=== PATIENT | male | born 1980 | race African-American/Black ===

== ENCOUNTER 2020-01-16 | Emergency (ER) | payer MEDICAID ==
[~2020-01-16] VITALS: Ht 185.4 cm; Wt 58.8 kg
[2020-01-16 00:09] VITALS: BP 118/76
[2020-01-16] MEDS ORDERED: LIDOcaine 1% 30ml preserv. free vial IJ ONE (00:40)
== END 2020-01-16 01:15 | disposition home or self-care (01) ==
LOC: ER 00:02
DX: L03.012 Cellulitis of left finger (principal); Z59.0 Homelessness
CPT/HCPCS: 10060; 99282; J2001

== ENCOUNTER 2020-01-24 11:59 | Emergency (ER) | payer MEDICAID ==
[~2020-01-24] VITALS: Ht 185.4 cm; Wt 66.0 kg
[2020-01-24 12:24] VITALS: BP 117/60
[2020-01-24] MEDS ORDERED: CEPH500C5 PO (13:57)
[2020-01-24] MEDS ORDERED: SULF1TAB49 PO (13:57)
== END 2020-01-24 14:21 | disposition home or self-care (01) ==
LOC: ER 11:59
DX: L02.211 Cutaneous abscess of abdominal wall (principal); Z59.0 Homelessness; Z79.899 Other long term (current) drug therapy
CPT/HCPCS: 99283

== ENCOUNTER 2020-02-19 22:23 | Emergency (ER) | payer MEDICAID ==
[~2020-02-19] VITALS: Ht 185.4 cm; Wt 64.8 kg
[2020-02-19 22:39] VITALS: BP 114/71
[2020-02-19] MEDS ORDERED: AMOX-422 PO (23:08)
[2020-02-19] MEDS ORDERED: acetaminophen 325mg tablet PO ONE (23:10)
== END 2020-02-19 23:34 | disposition home or self-care (01) ==
LOC: ER 22:24
DX: H66.91 Otitis media, unspecified, right ear (principal); Z59.0 Homelessness; Z79.899 Other long term (current) drug therapy
CPT/HCPCS: 99283

== ENCOUNTER 2020-02-22 00:10 | Emergency (ER) | payer MEDICAID ==
[~2020-02-22] VITALS: Ht 185.4 cm; Wt 65.9 kg
[~2020-02-22 00:10] MED LIST: AMOX-422 PO
[2020-02-22 00:23] VITALS: BP 118/85
[2020-02-22] MEDS ORDERED: NEOM10DR45 RIGHT EAR (01:25)
== END 2020-02-22 01:36 | disposition home or self-care (01) ==
LOC: ER 00:11
DX: H60.91 Unspecified otitis externa, right ear (principal); Z59.0 Homelessness; Z79.899 Other long term (current) drug therapy
CPT/HCPCS: 99283

== ENCOUNTER 2020-09-12 21:21 | Emergency (ER) | payer MEDICAID ==
[~2020-09-12] VITALS: Ht 185.4 cm; Wt 58.8 kg
[2020-09-12] MEDS ORDERED: ondansetron 4mg rapidly disintigrating tab PO ONE (22:15)
[2020-09-12] MEDS ORDERED: mag hydrox/Alum hydrox/simeth 30ml oral suspension PO ONE (22:15)
[2020-09-12] MEDS ORDERED: ONDA4TAB6 PO (22:28)
[2020-09-12 22:35] VITALS: BP 116/85
== END 2020-09-12 22:34 | disposition home or self-care (01) ==
LOC: ER 21:22
DX: R11.0 Nausea (principal); Z59.0 Homelessness; Z79.899 Other long term (current) drug therapy
CPT/HCPCS: 99283

== ENCOUNTER 2020-09-21 11:08 | Emergency (ER) | payer MEDICAID ==
[~2020-09-21] VITALS: Ht 185.4 cm; Wt 68.2 kg
[~2020-09-21 11:08] MED LIST changes: -AMOX-422 PO; +ONDA4TAB6 PO
[2020-09-21] MEDS ORDERED: potassium Cl 20 mEq SR tablet PO STA (11:32)
[2020-09-21] MEDS ORDERED: magnesium oxide 400mg tablet PO ONE (11:35)
[2020-09-21 12:21] VITALS: BP 112/69
[2020-09-21] MEDS: acetaminophen 325mg tablet PO ONE ×2 (12:37→12:38)
== END 2020-09-21 12:39 | disposition home or self-care (01) ==
LOC: ER 11:08
DX: S90.822A Blister (nonthermal), left foot, initial encounter (principal); R53.83 Other fatigue; E86.0 Dehydration; Z59.0 Homelessness; X58.XXXA Exposure to other specified factors, initial encounter; Y93.89 Activity, other specified; Y92.89 Other specified places as the place of occurrence of the external cause; Y99.8 Other external cause status; Z79.899 Other long term (current) drug therapy
CPT/HCPCS: 99284

== ENCOUNTER 2021-04-13 05:07 | Emergency (ER) | payer MEDICAID ==
[~2021-04-13] VITALS: Ht 185.4 cm; Wt 65.9 kg
[2021-04-13] MEDS ORDERED: diphenhydrAMINE 25mg capsule PO ONE (05:35)
[2021-04-13] MEDS ORDERED: metoclopramide 5 mg/ml inj IM ONE (05:35)
[2021-04-13] MEDS ORDERED: ketorolac trometh inj. 60 MG/2 ML VIAL IM ONE (05:35)
[2021-04-13 05:37] VITALS: BP 125/84
== END 2021-04-13 06:27 | disposition home or self-care (01) ==
LOC: ER 05:08
DX: R51.9 Headache, unspecified (principal); Z59.00 Homelessness unspecified
CPT/HCPCS: 70450; 96372; 99284; J1885; J2765; Q0163

== ENCOUNTER 2021-04-27 07:42 | Emergency (ER) | payer MEDICAID ==
[~2021-04-27] VITALS: Ht 185.4 cm; Wt 68.2 kg
[2021-04-27 07:46] VITALS: BP 125/92
[2021-04-27 08:25] LABS: CLARITY,URINE SLIGHTLY CLOUDY (Clear); COLOR,URINE YELLOW (Yellow); GLUCOSE, URINE NEGATIVE (Neg); KETONES,URINE TRACE mg/dl (Neg); LEUKOCYTE ESTERASE ,URINE NEGATIVE (Neg); NITRITES, URINE NEGATIVE (Neg); OCCULT BLOOD,URINE MODERATE (Neg); PH,URINE 5.5 (4.8-8.0); PROTEIN,URINE TRACE mg/dl (Neg); UROBILINOGEN,URINE 0.2 E.U/dL (0.2-1.0)
[2021-04-27 08:26] LABS: UA COLLECTION TYPE CLN CATCH MIDSTREAM
[2021-04-27 08:40] LABS: MUCUS STRANDS MANY /LPF (Neg); SQUAMOUS EPITHELIAL CELL,UR FEW /LPF (FEW)
[2021-04-27 08:42] LABS: BACTERIA,URINE FEW /HPF (Neg); WBC,URINE 0-4 /HPF (0-4)
== END 2021-04-27 08:44 | disposition home or self-care (01) ==
LOC: ER 07:43
DX: R10.9 Unspecified abdominal pain (principal); R11.0 Nausea; Z59.00 Homelessness unspecified
CPT/HCPCS: 81001; 99283

== ENCOUNTER 2021-06-13 18:41 | Emergency (ER) | payer MEDICAID ==
[~2021-06-13] VITALS: Ht 185.4 cm; Wt 55.6 kg
[2021-06-13 19:10] VITALS: BP 138/70
== END 2021-06-13 19:13 | disposition home or self-care (01) ==
LOC: ER 18:42
DX: Z13.89 Encounter for screening for other disorder (principal); R10.84 Generalized abdominal pain; Z59.00 Homelessness unspecified; Z79.899 Other long term (current) drug therapy
CPT/HCPCS: 99282; 99284

== ENCOUNTER 2021-07-12 03:40 | Emergency (ER) | payer MEDICAID ==
[~2021-07-12] VITALS: Ht 185.4 cm; Wt 71.0 kg
[2021-07-12 04:15] VITALS: BP 129/63
[2021-07-12] MEDS ORDERED: OLANZapine 2.5MG tablet PO STA (05:07)
== END 2021-07-12 06:11 | disposition home or self-care (01) ==
LOC: ER 03:43
DX: F60.0 Paranoid personality disorder (principal); R41.0 Disorientation, unspecified
CPT/HCPCS: 99283

== ENCOUNTER 2021-08-27 08:43 | Emergency (ER) | payer MEDICAID ==
[~2021-08-27] VITALS: Ht 185.4 cm; Wt 65.9 kg
[~2021-08-27 08:43] MED LIST changes: -ONDA4TAB6 PO; +PHEN51CR24 RC
[2021-08-27 09:03] VITALS: BP 112/80
[2021-08-27 09:39] LABS: CLARITY,URINE CLEAR (Clear); COLOR,URINE YELLOW (Yellow); GLUCOSE, URINE NEGATIVE (Neg); KETONES,URINE NEGATIVE (Neg); LEUKOCYTE ESTERASE ,URINE NEGATIVE (Neg); NITRITES, URINE NEGATIVE (Neg); OCCULT BLOOD,URINE NEGATIVE (Neg); PROTEIN,URINE NEGATIVE (Neg); UROBILINOGEN,URINE 0.2 E.U/dL (0.2-1.0)
[2021-08-27 09:42] LABS: UA COLLECTION TYPE CLN CATCH MIDSTREAM
[2021-08-27] MEDS ORDERED: FLO0.4C PO (10:16)
[2021-08-27] MEDS ORDERED: PHEN-716 PO (10:16)
== END 2021-08-27 10:32 | disposition home or self-care (01) ==
LOC: ER 08:43
DX: R39.15 Urgency of urination (principal); Z59.00 Homelessness unspecified; Z79.899 Other long term (current) drug therapy
CPT/HCPCS: 81003; 99283

== ENCOUNTER 2021-09-20 14:30 | Emergency (ER) | payer MEDICAID ==
[~2021-09-20] VITALS: Ht 185.4 cm; Wt 68.2 kg
[~2021-09-20 14:30] MED LIST changes: +FLO0.4C PO; +PHEN-716 PO
[2021-09-20 14:37] VITALS: BP 109/74
[2021-09-20] MEDS ORDERED: CLOT24CR2 TOP (15:46)
== END 2021-09-20 15:55 | disposition home or self-care (01) ==
LOC: ER 14:31
DX: B35.3 Tinea pedis (principal); Z59.00 Homelessness unspecified; Z79.2 Long term (current) use of antibiotics; Z79.899 Other long term (current) drug therapy
CPT/HCPCS: 99282

== ENCOUNTER 2021-10-02 18:22 | Emergency (ER) | payer MEDICAID ==
[~2021-10-02] VITALS: Ht 185.4 cm; Wt 68.2 kg
[~2021-10-02 18:22] MED LIST changes: +CLOT24CR2 TOP; -FLO0.4C PO
[2021-10-02 19:10] VITALS: BP 112/74
== END 2021-10-02 21:19 | disposition home or self-care (01) ==
LOC: ER 18:23
DX: T73.0XXA Starvation, initial encounter (principal); X58.XXXA Exposure to other specified factors, initial encounter; Y93.89 Activity, other specified; Y92.89 Other specified places as the place of occurrence of the external cause; Y99.8 Other external cause status
CPT/HCPCS: 99283

== ENCOUNTER 2021-10-09 18:39 | Emergency (ER) | payer MEDICAID ==
[~2021-10-09] VITALS: Ht 185.4 cm; Wt 68.2 kg
[2021-10-09 19:38] LABS: BASOPHILS % (AUTO) 0.7 % (0-1); HEMATOCRIT 39.7 % (42.0-52.0); HEMOGLOBIN 12.8 g/dl (14.0-17.9); LYMPHOCYTES # (AUTO) 1.7 X10'3 (1.1-4.8); LYMPHOCYTES % (AUTO) 42.5 % (21-51); MEAN CORPUSCULAR HEMOGLOBIN 26.4 PG (27.0-31.0); MEAN CORPUSCULAR HGB CONC 32.4 g/dL (33.0-36.5); MEAN CORPUSCULAR VOLUME 81.7 FL (78-98); MEAN PLATELET VOLUME 7.1 FL (7.4-10.4); MONOCYTES # (AUTO) 0.4 X10'3 (0-0.9); MONOCYTES % (AUTO) 9.3 % (2-12); NEUTROPHILS # (AUTO) 1.8 X10'3 (1.8-7.7); NEUTROPHILS % (AUTO) 46.5 % (42-75); PLATELET COUNT 257 X10'3 (140-440); RED BLOOD COUNT 4.86 X10'6 (4.70-6.10); RED CELL DISTRIBUTION WIDTH 13.1 % (11.5-14.5); WHITE BLOOD COUNT 3.9 X10'3 (4.5-11.0)
[2021-10-09 19:39] LABS: CLARITY,URINE CLEAR (Clear); COLOR,URINE YELLOW (Yellow); GLUCOSE, URINE NEGATIVE (Neg); KETONES,URINE 40 mg/dl (Neg); LEUKOCYTE ESTERASE ,URINE NEGATIVE (Neg); NITRITES, URINE NEGATIVE (Neg); OCCULT BLOOD,URINE NEGATIVE (Neg); PH,URINE 5.5 (4.8-8.0); PROTEIN,URINE 30 mg/dl (Neg)
[2021-10-09 19:43] LABS: UA COLLECTION TYPE CLN CATCH MIDSTREAM
[2021-10-09 19:46] LABS: BACTERIA,URINE NONE SEEN /HPF (Neg); RBC,URINE 0-2 /HPF (0-2); SQUAMOUS EPITHELIAL CELL,UR NONE SEEN /LPF (FEW); URIC ACID CRYSTALS FEW /HPF (NEGATIVE)
[2021-10-09 19:47] LABS: ALANINE AMINOTRANSFERASE 21 U/L (12-78); ALBUMIN/GLOBULIN RATIO 1.1 (1.1-1.5); ALKALINE PHOSPHATASE 58 IU/L (46-116); ANION GAP 11 (8-16); ASPARTATE AMINO TRANSFERASE 18 U/L (10-37); BILIRUBIN,TOTAL 0.7 MG/DL (0.1-1.0); BLOOD UREA NITROGEN 13 MG/DL (7-18); BUN/CREATININE RATIO 11.8 (5.4-32.0); CALCIUM 9.1 MG/DL (8.5-10.1); CHLORIDE 103 MMOL/L (99-107); GLUCOSE 108 MG/DL (70-104); LIPASE < 50 U/L (73-393); POTASSIUM 3.5 MMOL/L (3.5-5.1); SODIUM 142 MMOL/L (135-145); TOTAL CARBON DIOXIDE 28.5 MMOL/L (24-32); TOTAL PROTEIN 7.7 G/DL (6.4-8.2); eGFR 89 ML/MIN
[2021-10-09 19:47] LABS: WBC,URINE NONE SEEN /HPF (0-4)
[2021-10-09] MEDS ORDERED: ringers solution, lacted 1,000 ML IV ONE (20:20)
[2021-10-09 22:14] VITALS: BP 99/57
== END 2021-10-09 22:16 | disposition home or self-care (01) ==
LOC: ER 18:40
DX: E86.0 Dehydration (principal); R10.9 Unspecified abdominal pain; Z79.899 Other long term (current) drug therapy
CPT/HCPCS: 80053; 81001; 83690; 85025; 96360; 96361; 99283; J7120

== ENCOUNTER 2021-11-09 20:39 | Emergency (ER) | payer MEDICAID ==
[~2021-11-09] VITALS: Ht 185.4 cm; Wt 68.2 kg
[2021-11-09 21:58] VITALS: BP 106/77
== END 2021-11-09 23:23 | disposition home or self-care (01) ==
LOC: ER 20:39
DX: Z00.00 Encounter for general adult medical examination without abnormal findings (principal); E46 Unspecified protein-calorie malnutrition; Z59.00 Homelessness unspecified; Z79.899 Other long term (current) drug therapy
CPT/HCPCS: 99281

== ENCOUNTER 2022-01-07 18:24 | Emergency (ER) | payer MEDICAID ==
[~2022-01-07] VITALS: Ht 185.4 cm; Wt 68.2 kg
[2022-01-07 19:28] LABS: BASOPHILS % (AUTO) 0.7 % (0-1); HEMATOCRIT 38.1 % (42.0-52.0); HEMOGLOBIN 12.4 g/dl (14.0-17.9); LYMPHOCYTES # (AUTO) 1.8 X10'3 (1.1-4.8); LYMPHOCYTES % (AUTO) 48.2 % (21-51); MEAN CORPUSCULAR HEMOGLOBIN 27.4 PG (27.0-31.0); MEAN CORPUSCULAR HGB CONC 32.6 g/dL (33.0-36.5); MEAN CORPUSCULAR VOLUME 84.1 FL (78-98); MEAN PLATELET VOLUME 6.9 FL (7.4-10.4); MONOCYTES # (AUTO) 0.4 X10'3 (0-0.9); MONOCYTES % (AUTO) 10.1 % (2-12); NEUTROPHILS # (AUTO) 1.5 X10'3 (1.8-7.7); PLATELET COUNT 214 X10'3 (140-440); RED BLOOD COUNT 4.54 X10'6 (4.70-6.10); RED CELL DISTRIBUTION WIDTH 13.6 % (11.5-14.5); WHITE BLOOD COUNT 3.7 X10'3 (4.5-11.0)
[2022-01-07 19:43] LABS: ALANINE AMINOTRANSFERASE 17 U/L (12-78); ALBUMIN 3.8 G/DL (3.4-5.0); ALBUMIN/GLOBULIN RATIO 1.1 (1.1-1.5); ALKALINE PHOSPHATASE 54 IU/L (46-116); ANION GAP 11 (8-16); ASPARTATE AMINO TRANSFERASE 16 U/L (10-37); BILIRUBIN,TOTAL 0.6 MG/DL (0.1-1.0); BLOOD UREA NITROGEN 9 MG/DL (7-18); BUN/CREATININE RATIO 9.9 (5.4-32.0); CHLORIDE 106 MMOL/L (99-107); CREATININE 0.91 MG/DL (0.60-1.10); GLUCOSE 76 MG/DL (70-104); SODIUM 144 MMOL/L (135-145); TOTAL CARBON DIOXIDE 26.7 MMOL/L (24-32); TOTAL PROTEIN 7.3 G/DL (6.4-8.2); eGFR > 90 ML/MIN
[2022-01-07 19:45] LABS: POTASSIUM 2.9 MMOL/L (3.5-5.1)
[2022-01-07] MEDS ORDERED: atropine 1 MG/1 ML vial IV ONE (21:05)
[2022-01-07] MEDS ORDERED: aspirin 325mg tablet PO ONE (21:10)
[2022-01-07] MEDS ORDERED: atropine 0.1mg/ml 10ml syringe IV ONE (21:10)
[2022-01-07] MEDS ORDERED: normal saline 1000ml 1,000 ML IV ONE (21:15)
[2022-01-07] MEDS ORDERED: potassium Cl 10 mEq/100mL bag IV ONE (21:15)
[2022-01-07] MEDS ORDERED: POTASSIUM BICARB 20meq eff tab 20 MEQ TABLET.EFF PO ONE (21:40)
[2022-01-07 22:10] LABS: MAGNESIUM 1.9 MG/DL (1.5-2.4); PHOSPHORUS 3.5 MG/DL (2.3-4.5)
[2022-01-07 23:58] VITALS: BP 134/78
== END 2022-01-08 | disposition home or self-care (01) ==
LOC: ER 18:26
DX: R00.1 Bradycardia, unspecified (principal); R07.89 Other chest pain; Z56.0 Unemployment, unspecified; Z59.00 Homelessness unspecified
CPT/HCPCS: 36415; 71045; 80053; 83735; 83880; 84100; 84443; 84484; 85025; 93005; 96374; 99285; J0461

== ENCOUNTER 2022-01-16 08:31 | Emergency (ER) | payer MEDICAID ==
[~2022-01-16] VITALS: Ht 185.4 cm; Wt 68.2 kg
[2022-01-16 08:38] VITALS: BP 99/62
[2022-01-16] MEDS ORDERED: ACET-890 PO (10:32)
== END 2022-01-16 10:50 | disposition home or self-care (01) ==
LOC: ER 08:32
DX: M79.662 Pain in left lower leg (principal); M79.661 Pain in right lower leg; Z76.0 Encounter for issue of repeat prescription; Z60.2 Problems related to living alone; Z56.0 Unemployment, unspecified; Z59.00 Homelessness unspecified; Z79.2 Long term (current) use of antibiotics; Z79.899 Other long term (current) drug therapy
CPT/HCPCS: 99282

== ENCOUNTER 2022-03-17 17:13 | Emergency (ER) | payer MEDICAID ==
[~2022-03-17] VITALS: Ht 185.4 cm; Wt 68.0 kg
[2022-03-17 17:19] VITALS: BP 115/77
[2022-03-17] MEDS ORDERED: acetaminophen 325mg tablet PO ONE (17:25)
[2022-03-17 18:00] LABS: BASOPHILS % (AUTO) 0.5 % (0-1); EOSINOPHILS % (AUTO) 0.2 % (0-6); HEMATOCRIT 43.3 % (42.0-52.0); LYMPHOCYTES # (AUTO) 0.5 X10'3 (1.1-4.8); LYMPHOCYTES % (AUTO) 8.5 % (21-51); MEAN CORPUSCULAR HEMOGLOBIN 27.1 PG (27.0-31.0); MEAN CORPUSCULAR HGB CONC 32.3 g/dL (33.0-36.5); MEAN PLATELET VOLUME 6.8 FL (7.4-10.4); MONOCYTES # (AUTO) 1.2 X10'3 (0-0.9); MONOCYTES % (AUTO) 21.5 % (2-12); NEUTROPHILS # (AUTO) 3.9 X10'3 (1.8-7.7); NEUTROPHILS % (AUTO) 69.3 % (42-75); PLATELET COUNT 214 X10'3 (140-440); RED BLOOD COUNT 5.16 X10'6 (4.70-6.10); RED CELL DISTRIBUTION WIDTH 13.4 % (11.5-14.5); WHITE BLOOD COUNT 5.6 X10'3 (4.5-11.0)
[2022-03-17 18:13] LABS: ALANINE AMINOTRANSFERASE 23 U/L (12-78); ALBUMIN 3.9 G/DL (3.4-5.0); ALKALINE PHOSPHATASE 67 IU/L (46-116); ANION GAP 7 (8-16); ASPARTATE AMINO TRANSFERASE 21 U/L (10-37); BILIRUBIN,TOTAL 0.2 MG/DL (0.1-1.0); BLOOD UREA NITROGEN 10 MG/DL (7-18); CHLORIDE 100 MMOL/L (99-107); GLUCOSE 118 MG/DL (70-104); LIPASE 76 U/L (73-393); SODIUM 135 MMOL/L (135-145); TOTAL CARBON DIOXIDE 27.7 MMOL/L (24-32); TOTAL PROTEIN 7.9 G/DL (6.4-8.2); eGFR > 90 ML/MIN
[2022-03-17] MEDS ORDERED: ondansetron 4mg rapidly disintigrating tab PO ONE (19:10)
[2022-03-17] MEDS ORDERED: ketorolac trometh inj. 60 MG/2 ML VIAL IM ONE (19:10)
[2022-03-17 19:19] LABS: CLARITY,URINE SLIGHTLY CLOUDY (Clear); COLOR,URINE YELLOW (Yellow); GLUCOSE, URINE NEGATIVE (Neg); KETONES,URINE NEGATIVE (Neg); LEUKOCYTE ESTERASE ,URINE NEGATIVE (Neg); NITRITES, URINE NEGATIVE (Neg); OCCULT BLOOD,URINE NEGATIVE (Neg); PH,URINE 5.5 (4.8-8.0); PROTEIN,URINE 30 mg/dl (Neg); UROBILINOGEN,URINE 0.2 E.U/dL (0.2-1.0)
[2022-03-17 19:26] LABS: UA COLLECTION TYPE CLN CATCH MIDSTREAM
[2022-03-17 19:31] LABS: BACTERIA,URINE FEW /HPF (Neg); MUCUS STRANDS FEW /LPF (Neg); RBC,URINE 0-2 /HPF (0-2); SQUAMOUS EPITHELIAL CELL,UR FEW /LPF (FEW); TRANSITIONAL EPI CELLS,URINE FEW /HPF
[2022-03-17 20:01] LABS: ANISOCYTOSIS 1+; PLATELET ESTIMATE NORMAL; TARGET CELLS 1+; TOTAL CELLS COUNTED 100
[2022-03-17 20:02] LABS: ELLIPTOCYTES FEW; SMUDGE CELLS 1+
[2022-03-17] MEDS ORDERED: ONDA8TAB13 PO (20:23)
[2022-03-17] MEDS ORDERED: ACET-1025 PO (20:23)
[2022-03-17] MEDS ORDERED: NIRM1TAB PO (20:23)
== END 2022-03-17 20:52 | disposition home or self-care (01) ==
LOC: ER 17:13
DX: U07.1 COVID-19 (principal); R10.30 Lower abdominal pain, unspecified; R11.0 Nausea; R51.9 Headache, unspecified; Z60.2 Problems related to living alone; Z59.00 Homelessness unspecified; Z56.0 Unemployment, unspecified; Z88.6 Allergy status to analgesic agent; Z79.2 Long term (current) use of antibiotics; Z79.899 Other long term (current) drug therapy
CPT/HCPCS: 36415; 80053; 81001; 83690; 85007; 85025; 87088; 87502; 87503; 87635; 96372; 99283; C9803; J1885

== ENCOUNTER 2022-05-02 17:45 | Emergency (ER) | payer MEDICAID ==
[~2022-05-02] VITALS: Ht 185.4 cm; Wt 68.0 kg
[~2022-05-02 17:45] MED LIST changes: +NIRM1TAB PO; +ONDA8TAB13 PO
[2022-05-02 17:51] VITALS: BP 125/83
[2022-05-02] MEDS ORDERED: acetaminophen 325mg tablet PO STA (19:47)
[2022-05-02 20:03] LABS: CLARITY,URINE CLEAR (Clear); COLOR,URINE YELLOW (Yellow); GLUCOSE, URINE NEGATIVE (Neg); KETONES,URINE TRACE mg/dl (Neg); LEUKOCYTE ESTERASE ,URINE NEGATIVE (Neg); NITRITES, URINE NEGATIVE (Neg); OCCULT BLOOD,URINE NEGATIVE (Neg); PROTEIN,URINE NEGATIVE (Neg); UROBILINOGEN,URINE 0.2 E.U/dL (0.2-1.0)
[2022-05-02 20:11] LABS: UA COLLECTION TYPE NON-SPECIFIED
[2022-05-02] MEDS ORDERED: ACET-3209 PO (20:41)
== END 2022-05-02 21:15 | disposition home or self-care (01) ==
LOC: ER 17:45
DX: R10.30 Lower abdominal pain, unspecified (principal); Z59.00 Homelessness unspecified; Z56.0 Unemployment, unspecified
CPT/HCPCS: 81003; 99283

== ENCOUNTER 2022-06-10 17:57 | Emergency (ER) | payer MEDICAID ==
[~2022-06-10] VITALS: Ht 185.4 cm; Wt 68.2 kg
[2022-06-10 18:02] VITALS: BP 109/64
== END 2022-06-10 19:10 | disposition home or self-care (01) ==
LOC: ER 17:58
DX: L84 Corns and callosities (principal); M79.672 Pain in left foot; Z88.6 Allergy status to analgesic agent; Z59.00 Homelessness unspecified; Z56.0 Unemployment, unspecified
CPT/HCPCS: 99281

== ENCOUNTER 2022-08-20 06:41 | Day surgery (SDC) | payer MEDICAID ==
[~2022-08-20] VITALS: Ht 185.4 cm; Wt 68.2 kg
[2022-08-20 06:48] VITALS: BP 119/76
[2022-08-20] MEDS ORDERED: NO HOME MEDS (07:08)
[2022-08-20] MEDS ORDERED: fentaNYL/PF 50MCG/1 ML 2ML syringe ONE ×2 (07:37→08:14)
[2022-08-20] MEDS ORDERED: MIDAZolam 1 MG/ML 5ML VIAL ONE (07:38)
[2022-08-20 08:40] VITALS: BP 118/73
[2022-08-20 08:50] VITALS: BP 112/75
[2022-08-20 09:00] VITALS: BP 109/74
[2022-08-20 09:10] VITALS: BP 104/69
== END 2022-08-20 10:00 | disposition home or self-care (01) ==
LOC: GI LAB 06:41
PROVIDERS: ATTEND Internal Medicine Gastroenterology
DX: K52.9 Noninfective gastroenteritis and colitis, unspecified (principal); R19.4 Change in bowel habit; Z72.89 Other problems related to lifestyle; Z88.8 Allergy status to other drugs, medicaments and biological substances
CPT/HCPCS: 45380; 99152; 99153; J2250; J3010; J7030; Z7512; A4620

== ENCOUNTER 2022-09-05 23:07 | Emergency (ER) | payer MEDICAID ==
[~2022-09-05] VITALS: Ht 185.4 cm; Wt 68.2 kg
[~2022-09-05 23:07] MED LIST changes: -CLOT24CR2 TOP; -NIRM1TAB PO; +NO HOME MEDS; -ONDA8TAB13 PO; -PHEN-716 PO; -PHEN51CR24 RC
[2022-09-05 23:35] VITALS: BP 123/84
[2022-09-06] MEDS ORDERED: acetaminophen 325mg tablet PO ONE (01:50)
[2022-09-06] MEDS ORDERED: diphenhydrAMINE 25mg capsule PO ONE (01:50)
[2022-09-06] MEDS ORDERED: SUL50S RIGHTEYE (01:58)
[2022-09-06] MEDS ORDERED: SUL50S LEFTEYE (01:58)
== END 2022-09-06 02:07 | disposition home or self-care (01) ==
LOC: ER 23:07
DX: T78.40XA Allergy, unspecified, initial encounter (principal); H10.33 Unspecified acute conjunctivitis, bilateral; Z88.6 Allergy status to analgesic agent; Z79.899 Other long term (current) drug therapy; Z79.1 Long term (current) use of non-steroidal anti-inflammatories (NSAID)
CPT/HCPCS: 99283; Q0163

== ENCOUNTER 2023-06-05 16:08 | Emergency (ER) | payer MEDICAID ==
[~2023-06-05] VITALS: Ht 185.4 cm; Wt 87.1 kg
[~2023-06-05 16:08] MED LIST changes: +SUL50S LEFTEYE; +SUL50S RIGHTEYE
[2023-06-05 16:12] VITALS: BP 125/74; PULSE 107; RESP 16; TEMP 98.8; O2SAT 95
[2023-06-05] MEDS ORDERED: acetaminophen 325mg tablet PO ONE (16:20)
== END 2023-06-05 16:51 | disposition home or self-care (01) ==
LOC: ER 16:09
DX: M79.604 Pain in right leg (principal); M79.605 Pain in left leg; Z88.6 Allergy status to analgesic agent; Z79.899 Other long term (current) drug therapy
CPT/HCPCS: 99282